=== PATIENT | male | born 1990 | race Caucasian/White ===

== ENCOUNTER 2024-08-11 06:55 | Day surgery (SDC) | payer BC ==
[2024-08-11] MEDS: IV FLUID CONTINUATION 1,000 ML IV ONE (07:12)
[2024-08-11 07:17] VITALS: TEMP 97.8
[2024-08-11] MEDS: LACTATED RINGERS 1,000 ML IV SCH (07:21)
[2024-08-11] MEDS ORDERED: PROPOFOL 10 MG/ML 20 ML VIAL IV ONE (07:51)
[2024-08-11] MEDS ORDERED: LIDOCAINE 1% INJ 10MG/ML (20 ML MDV) ONE (07:51)
--- NOTE | 2024-08-11 08:11 | P.PCN ---
Date of Procedure: 08/11/24 Procedure(s) Performed: Brief history: Patient is a pleasant 33-year-old white male scheduled for an elective upper endoscopy as well as colonoscopy as a part of evaluation of throat tightness, GERD and intermittent rectal bleeding on and off for the last several months duration. He has been on Protonix 40 mg daily and reflux symptoms have significantly improved. Procedure performed: Esophagogastroduodenoscopy with biopsy Colonoscopy Preoperative diagnosis: Throat tightness/GERD Intermittent rectal bleeding Anesthesia: MAC Procedure: After informed consent was obtained from the patient was brought into the endoscopy unit and IV sedation was administered by anesthesia under continuous monitoring. Initially upper endoscopy was done. The Olympus GF 160 video endoscope was inserted inserted into the mouth and esophagus intubated without any difficulty and was gradually advanced into the stomach and duodenum and carefully examined. The bulb and second part of the duodenum appeared normal. Biopsies were done from the duodenum rule out celiac disease. The scope was then withdrawn into the stomach adequately insufflated with air and upon careful examination the antrum had mild gastritis and biopsies were done from this area. Mucosa body, cardia and fundus appeared normal. The scope was then withdrawn into the esophagus. The GE junction was located at 40 cm to the incisors. It appeared regular with no erythema erosions or ulcerations. Rest of the esophagus appeared normal. Multiple biopsies were done from the mid and distal esophagus rule out eosinophilic esophagitis. Patient tolerated the procedure well. At this time the patient continued to remain sedation. Initial digital rectal examination was normal. Olympus CF 160 video colonoscope was then inserted into the rectum and gradually advanced to the cecum without any difficulty. Careful examination was performed as the scope was gradually being withdrawn. The prep was excellent. The cecum, ascending colon, transverse colon, descending colon, sigmoid colon and rectum appeared normal. Retroflexion was performed in the rectum and small internal hemorrhoids were noted. Patient tolerated the procedure well. Impression: 1. Upper endoscopy revealed mild gastritis but no evidence of esophagitis or peptic ulcer disease 2. Colonoscopy revealed small internal hemorrhoids but no evidence of colorectal neoplasia Recommendations: Findings of this examination were discussed with the patient as well as his family. He was advised to follow-up with the biopsy results. Continue with Protonix 40 mg daily and follow antireflux measures. Recommend a high-fiber diet. Repeat screening colonoscopy in 10 years.
[2024-08-11 08:18] VITALS: RESP 16
[2024-08-11 08:57] VITALS: BP 107/66; PULSE 65
== END 2024-08-11 08:55 ==
LOC: ORWHC2ENDO 06:55
PROVIDERS: ATTEND Internal Medicine Gastroenterology
DX: K29.50 Unspecified chronic gastritis without bleeding (principal); D72.10 Eosinophilia, unspecified; K90.0 Celiac disease; K64.8 Other hemorrhoids
CPT/HCPCS: 45378; 43239; J2003; J2704; 88305